=== PATIENT | female | born 1985 | race Caucasian/White ===

== ENCOUNTER → 2019-04-25 | Outpatient (CLI) | payer OTHER ==
[~2019-04-25] MED LIST: CYCL10 PO; GENT.3OPSA OS; HYDACE5 PO; HYDR1TAB94; IBUP800 PO; LABE100; SULTRIDS PO; TRAM50 PO; Veetids 500500 MG PO; Verotin-Gr Cap1 EACH PO
[2019-04-26 15:07] LABS: HPV 16 Negative (Negative); HPV 18 Negative (Negative); HPV OTHER HR TYPES Negative (Negative)
== END ==
LOC: LAB SRC 11:06 → LAB SHORT 11:06
PROVIDERS: Nurse Practitioner Family
DX: Z12.4 Encounter for screening for malignant neoplasm of cervix (principal)
CPT/HCPCS: 87624; G0123

== ENCOUNTER → 2019-05-30 | Outpatient (CLI) | payer OTHER ==
[2019-05-31 16:06] LABS: HPV 16 Negative (Negative); HPV 18 Negative (Negative); HPV OTHER HR TYPES Negative (Negative)
== END ==
LOC: LAB SHORT 09:26 → LAB 09:26
PROVIDERS: Nurse Practitioner Family
DX: Z12.4 Encounter for screening for malignant neoplasm of cervix (principal)
CPT/HCPCS: 87624; G0123

== ENCOUNTER → 2024-06-05 | Outpatient (CLI) | payer OTHER ==
[2024-06-09 16:20] LABS: HPV HIGH RISK BY TMA Not Detected; HPV SOURCE Cervical
== END ==
LOC: LAB 12:03 → LAB SHORT 12:03
PROVIDERS: Student in an Organized Health Care Education/Training Program
DX: Z01.419 Encounter for gynecological examination (general) (routine) without abnormal findings (principal)
CPT/HCPCS: 87624; G0123